=== PATIENT | male | born 1985 | race Caucasian/White ===

== ENCOUNTER 2017-06-03 17:07 | Emergency (ER) | payer OTHER, BC ==
[~2017-06-03] VITALS: Ht 185.4 cm; Wt 128.6 kg
[2017-06-03 17:15] VITALS: BP 147/89; PULSE 104; RESP 14; TEMP 97.6; O2SAT 96
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
[2017-06-03 18:43] VITALS: BP 134/82; PULSE 86; RESP 16; O2SAT 97
== END 2017-06-03 18:48 | disposition home or self-care (01) ==
LOC: PHED 17:07
DX: S29.011A Strain of muscle and tendon of front wall of thorax, initial encounter (principal); V89.2XXA Person injured in unspecified motor-vehicle accident, traffic, initial encounter
CPT/HCPCS: 71010; 99283